=== PATIENT | male | born 1985 | race Caucasian/White ===

== ENCOUNTER 2018-04-01 00:48 | Emergency (ER) | payer SELFPAY ==
[2018-04-01] MEDS: LORAZEPAM 2 MG INJ IM (02:59)
== END 2018-04-01 09:04 | disposition home or self-care (01) ==
LOC: E/R 00:48
DX: F10.920 Alcohol use, unspecified with intoxication, uncomplicated (principal); R41.82 Altered mental status, unspecified
CPT/HCPCS: 70450; 80307; 96372; 99285-25